=== PATIENT | female | born 1965 | race Caucasian/White ===

== ENCOUNTER 2016-11-21 16:37 | Inpatient (IN) | payer BC ==
[~2016-11-21] VITALS: Ht 172.7 cm; Wt 80.2 kg
--- NOTE | ~2016-11-21 | LETTER ---
ADMIT: 11/21/2016 RM/LOC: 419 [facility] MR#: [id number] [address] [facility] [facility] [place], [place] [address] SHERIE SINGH [address] [place] [id number] Letter SEX: F AGE: 51 : 1965 November 23, 2016 Milton Burden MD [address] [facility], [facility] [address] [place] [address] Re: SHERIE SINGH Dear Milton: Sherie Meyers presented over the weekend with new onset chest discomfort. As you recall, she had an equivocal troponin, but some subtle EKG changes. She underwent heart catheterization on November 23, 2016. She had no prior coronary history. She is a smoker with a baseline LDL of 160. At coronary angiography, she was found to have single-vessel disease with 95% stenosis of the proximal LAD. This stenosis was treated successfully with a 3.0 x 16 mm stent. Post stent deployment, I was concerned about some haziness and possible thrombus versus residual disease just proximal to the stent. We performed intravascular ultrasound and this revealed residual plaque. Therefore, I placed a 3.5 x 8 mm Synergy stent in an overlapping fashion to cover the entire proximal segment of the artery. The stents do extend into the midportion. At the end of the case, there was no significant residual and she continued to have DENICE-3 flow with no immediate complications. She will be in the hospital overnight and I am going to start Integrilin because of the high thrombus burden. She has been placed on Brilinta. If all goes well, I anticipate she will be discharged home tomorrow. If there are any questions or concerns, please do not hesitate to contact me. Sincerely, MD FERNANDO Rene/mahsa /[phone]
--- NOTE | ~2016-11-21 | ECH ---
Transthoracic Echocardiography Report (TTE) Demographics Patient Name SHERIE SINGH Date of Study 11/22/2016 Patient Number [id number] Visit Number [id number] Date of 1965 Room Number 419 Accession Number [id number] Gender Female Age 51 year(s) Referring Miguel Ángel García Hardware Test Engineer Kathryn Cannon [facility] Physician MD Jenise Restrepo MD Physician Interpreting Miguel Ángel García Lotus Notes Administrator Physician Supervising Ordering Physician Miguel Ángel García MD/KRISTOFER VARGAS Nurse Stress Certified Orthoptist Conclusions Summary Technically adequate exam. The estimated left ventricular ejection fraction is 65%. Mild left ventricular hypertrophy. No significant valvular abnormalities. Procedure Type of Study TTE procedure:Echo Complete SF. Procedure Date Date: 11/22/2016 Start: 10:50 AM Technical Quality: Adequate visualization Indications:Chest pain, Abnormal troponin and Abnormal ECG. Appropriate Use Criteria: 9 Height: 68 inches Weight: 173 pounds BSA: 1.92 m Rhythm: Within normal limits HR: 70 bpm BP: 100/54 mmHg M-Mode/2D Measurements LV Diastolic Dimension: 4.29 cm LV Systolic Dimension: 2.42 cm LV Septum Diastolic: 1.15 cm LV PW Diastolic: 0.93 cm AO Root Dimension: 2.55 cm Cardiac Output: 2.76 l/min LA Dimension: 3.67 cm Cardiac Index: 1.44 l/min*m RV Diastolic Dimension: 2.87 cm LA volume index: 28 ml/m LVOT: 1.61 cm LVOT VTI: 19.37 cm RV Base: 3.48 cm LV Stroke volume: 39.41 ml RV Mid: 2.3 cm LV Stroke volume index: 20.53 ml/m RV Length: 7.2 cm Doppler Measurements AV Peak Velocity: 1.3 m/s MV Peak E-Wave: 0.82 m/s AV Peak Gradient: 6.76 mmHg MV Peak A-Wave: 0.61 m/s AV Mean Gradient: 3.94 mmHg MV E/A Ratio: 1.35 LVOT Peak Velocity: 0.92 m/s MV P1/2t: 48.5 msec AV Area (Continuity):1.51 cm MV Deceleration Time: 161.6 msec TR Velocity:2.23 m/s MV Area (PHT): 4.54 cm TR Gradient:19.94 mmHg PV Peak Velocity: 0.8 m/s Estimated RAP:5 mmHg PV Peak Gradient: 2.54 mmHg Estimated RVSP: 25 mmHg Estimated PASP: 24.94 mmHg RA Area: 12.81 cm Findings Left Ventricle The left ventricle is normal in size . Mild left ventricular hypertrophy. Diastolic assessment reveals normal relaxation. Right Ventricle Normal right ventricle structure and function. Left Atrium Normal left atrial size. Right Atrium Normal right atrial size. Mitral Valve Normal mitral valve structure and function. Mild mitral regurgitation by color Doppler. Aortic Valve The aortic valve is mildly sclerotic. There is no aortic regurgitation by color Doppler. Tricuspid Valve Normal tricuspid valve structure and function. Mild tricuspid regurgitation by color Doppler. Pulmonic Valve The pulmonic valve is not well visualized. Pericardial Effusion No evidence of pericardial effusion. Miscellaneous Visualized portions of the aortic root and ascending aorta appear normal in size. Pleural Effusion No evidence of pleural effusion. Contractility Score LV regional wall motion:(0-Non visualized 1-Normal 2-Hypokinesis 3-Akinesis 4-Dyskinesis 5-Aneurysm) Signature
--- NOTE | ~2016-11-21 | CATH ---
Cardiac Diagnostic + PCI Report Demographics Patient Name LORIN REHMAN Gender Female Date of 1965 Age 51 year(s) Patient Number [id number] Date of Study 11/23/2016 Visit Number [id number] Room Number 419 Corporate ID Ht 172.72 cm Wt 78.47 kg Accession Number [id number] BSA 1.92 m Referring Keyonnattjames Restrepo Primary Physician Physician Performing Fruehling Sukumar R Secondary Physician Physician Diagnostic Fruehling Sukumar R Assisting Physician Physician Interventional Fruehling Sukumar R Physician Manager Restaurant Physician MD Findings and Conclusions Diagnostic Findings and Conclusion Single vessel CAD of prox LAD, 95% with DENICE III flow. EDP 4 mmHg Diagnostic Recommendations Proceed with stenting of proximal LAD Interventional Findings and Conclusion Successful PCI of prox LAD with 3.0x16 mm and 3.5x8 mm Synergy stents placed proximally in an overlapping fashion. The second stent was placed after IVUS revealed significant plaque with possible thrombus proximally. Interventional Recommendations Integrilin for 12 hrs due to thrombus burden Long-term Dual Anti-Platelet Therapy Smoking cessation counseling Risk factor modification Procedure Description The patient was brought to the diagnostic cardiac catheterization laboratory in the fasting, non-sedated state. Informed consent was obtained in the written and verbal form after the risks and benefits were explained. The patient had no further questions and agreed to proceed. The planned puncture-incision site(s) were shaved and prepped with ChloraPrep and draped in the usual sterile manner. Conscious sedation, supplemental oxygen, and pain control medications were delivered by a registered nurse under physician guidance. Surface ECG rhythm, blood pressure measurement, and pulse oximetry were monitored throughout the procedure. Arterial access. The right radial access site was infiltrated with lidocaine. The right radial vessel was entered with the Seldinger technique. A 6F radial sheath was advanced into the vessel and used for catheter placement. Selective right coronary angiography. A 6F FR4 catheter was advanced into the right coronary vessel ostium under fluoroscopic guidance. Contrast was injected by hand. Images were obtained in multiple projections. Left heart catheterization. A 6F JL3.5 catheter was advanced across the aortic valve to the left ventricle under fluoroscopic guidance. Resting hemodynamics were obtained. Selective left coronary angiography. A 6F JL3.5 catheter was advanced into the left coronary vessel ostium under Fluoroscopic guidance. Contrast was injected by hand. Images were obtained in multiple projections. Angioplasty and Stent Placement: A EBU3.5 guiding catheter was used to intubate the vessel. A 0.14 BMW wire was then used to cross the lesion. A 2.5x12 Trek balloon catheter was placed across the lesion and inflated. The balloon catheter was then removed. A 3.0 x 16 Synergy Drug Eluting Stent was placed and inflated. The stent balloon was removed and a 3.5x8 NC Emerge balloon was used to post-dilate. Next, the IVUS catheter was advanced into position and imaging was performed. Vessel dimensions were measured. A 3.5 x 8 Synergy Drug Eluting Stent was placed and inflated. Post placement angiograms were performed. Arterial artery hemostasis was achieved using 13cc air in a TR band. The patient was transferred back to the regular nursing floor via cart accompanied by a nurse. The patient left the laboratory in stable condition. Diagnostic Cath Status: Urgent Interventional Cath Status: Urgent Procedure Procedure Type Diagnostic procedure:Diagnostic Heart Cath SF PCI procedure:Drug Eluting Coronary Stent:, LAD, Additional Imaging:, IVUS:, Initial Vessel Indications: Chest discomfort, Elevated troponin, Tobacco use-current, Hyperlipidemia and NSTEMI. The procedure was explained in detail to the patient. Risks, complications and alternative treatments were reviewed. Written consent was obtained. Medications Reviewed with Patient prior to Procedure. Complications: No Complication. Angiographic Findings Dominance: Right Cardiac Arteries and Lesion Findings LMCA: Normal (0% Stenosis). LAD: Abnormal. Lesion on Prox LAD: Distal subsection.95% stenosis 16 mm length reduced to 0%. Pre procedure DENICE III flow was noted. Post Procedure DENICE III flow was present. The guidewire cross was successful.Culprit lesion. IVUS was performed. Treatment results:Interventional treatment was successful. Devices used - BMW GUIDEWIRE 180CM. Number of passes: 1. - CATH BLN RX TREK 2.5X12MM. Diameter: 2.5 mm. Length: 12 mm. 2 inflation(s) to a max pressure of: 10 edna. - CATH STENT SYNERGY 3.0 X 16. 1 inflation(s) to a max pressure of: 16 edna. - CATH BAL RX NC EMERGE 3.5X8. 1 inflation(s) to a max pressure of: 16 edna. Lesion on Prox LAD: 95% stenosis 8 mm length reduced to 0%. Pre procedure DENICE III flow was noted. Post Procedure DENICE III flow was present. The guidewire cross was successful. IVUS was performed. Treatment results:Interventional treatment was successful. Devices used - CATH STENT SYNERGY 3.0 X 8. 2 inflation(s) to a max pressure of: 14 edna. LCx: Normal (0% Stenosis). RCA: Abnormal. Lesion on Mid RCA: 40% stenosis . Ramus: Normal (0% Stenosis). Coronary Tree Procedure Data Procedure Date Date: 11/23/2016Start: 09:32 AMEnd: 10:56 AM Entry Locations - Percutaneous access was performed through the Right Radial artery (Primary location). A 6 Fr sheath was inserted. Hemostasis was successfully obtained using a TR band. Closure Comments: 13 cc air in band. Procedure Medications Order and Administration + + + + + !Time !Medication !Dosage !Route ! + + + + + !11/23/2016 09:29 !Fentanyl !25 mcg !I.V. ! !AM ! ! ! ! + + + + + !11/23/2016 09:29 !Versed !1 mg !I.V. ! !AM ! ! ! ! + + + + + !11/23/2016 09:33 !Fentanyl !25 mcg !I.V. ! !AM ! ! ! ! + + + + + !11/23/2016 09:33 !Versed !1 mg !I.V. ! !AM ! ! ! ! + + + + + !11/23/2016 09:54 !Brilinta (Ticagrelor) !180 mg !P.O. ! !AM !(ACC_20) ! ! ! + + + + + !11/23/2016 10:04 !Fentanyl !25 mcg !I.V. ! !AM ! ! ! ! + + + + + !11/23/2016 10:04 !Versed !1 mg !I.V. ! !AM ! ! ! ! + + + + + !11/23/2016 10:07 !Fentanyl !25 mcg !I.V. ! !AM ! ! ! ! + + + + + !11/23/2016 10:07 !Versed !1 mg !I.V. ! !AM ! ! ! ! + + + + + !11/23/2016 10:08 !Sodium Chloride !20 ml !I.V. ! !AM ! ! ! ! + + + + + !11/23/2016 10:09 !Nitroglycerin !200 mcg !I.C. ! !AM ! ! ! ! + + + + + !11/23/2016 10:17 !Heparin (ACC_3) !2000 units !I.V. ! !AM ! ! ! ! + + + + + !11/23/2016 10:17 !Sodium Chloride !10 ml !I.V. ! !AM ! ! ! ! + + + + + !11/23/2016 10:34 !Fentanyl !50 mcg !I.V. ! !AM ! ! ! ! + + + + + !11/23/2016 10:34 !Versed !2 mg !I.V. ! !AM ! ! ! ! + + + + + !11/23/2016 10:42 !Integrilin (ACC_7) !6.8 ml !I.V. bolus ! !AM ! ! ! ! + + + + + !11/23/2016 10:42 !Integrilin (ACC_7) !2 mcg/kg/min!I.V. drip ! !AM ! ! ! ! + + + + + !11/23/2016 10:54 !Integrilin (ACC_7) !6.8 ml !I.V. bolus ! !AM ! ! ! ! + + + + + Devices Used - ACATH 6F FR4 CATHETER 100CMwas used for:Right coronary angiography. - ACATH 6FR FL3.5 CATHETER 100CMwas used for:LV Pressures. - ACATH 6FR FL3.5 CATHETER 100CMwas used for:Left coronary angiography. - AGUIDE CATHETER 6FR EBU 3.5 100CMwas used for:LAD Intervention. Contrast Material - Isovue 02857 ml - Isovue 95197 ml - Isovue 44957 ml Fluoroscopy Time: Diagnostic: 18:06 minutes. Total: 18:06 minutes. Fluoroscopy Dose: Diagnostic: 1732 mGy. Total: 1732 mGy. Estimated Blood Loss: 10 ml. Medical History Allergies - No known allergies. Risk Factors The patient risk factors include:hypercholesterolemia, last creatinine: 0.7 mg/dl, creatinine clearance: 116.46 ml/min, dyslipidemia and Current/Recent(w/in 1 year) tobacco use. Admission Data Admission Date: 11/21/2016 Admission Time: 08:20 PM Insurance Payors: Private health insurance. Clinical Evaluation Leading to Procedure Diagnosed on 11/22/2016 08:45 AM. - The patient's CAD presentation was assessed as: Non-STEMI. - The patient's anginal syndrome during the past two weeks was assessed as: Class III according to the [place] Cardiovascular Society Classification System (CCS). Hemodynamics Condition: Rest O2 Consumption: Estimated: 187.01Heart Rate: 70 bpm Pressures (mmHg) +-----+ + !Site !Pressure ! +-----+ + !AO !111/ (90) ! +-----+ + !LV !111/1 ,4 ! +-----+ + !AO !132/78 (101) ! +-----+ + !LV !104/2 ,5 ! +-----+ + Valve Gradients and Areas + +---------+---------+---------+ +---------+ + !Valve !Peak !Mean !Area !Index !Flow !Source ! + +---------+---------+---------+ +---------+ + !Aortic !0 ! ! ! ! ! ! + +---------+---------+---------+ +---------+ + !Aortic !0 ! ! ! ! ! ! + +---------+---------+---------+ +---------+ + Shunts Oxygen Values O2 Capacity 168.64 O2 Consumption 187.01 Discharge Data Discharge Date: 11/24/2016 Hospital Status: Inpatient Signatures
--- NOTE | 2016-11-22 19:38 | ER ---
ADMIT: 11/21/2016 RM/LOC: 419 [facility] MR#: [id number] [address] [facility] [address] [place], [place] [address] LORIN SINGHALENASHERIE [address] [place] [address] Emergency Room Report SEX: F AGE: 51 : 1965 DATE: 11/21/2016 CHIEF COMPLAINT: Chest pain. HISTORY OF PRESENT ILLNESS: The patient is a 51-year-old, Guatemalan-speaking Felipe complaining of left substernal chest discomfort, nonradiating with activity, associated with shortness of breath. Denies any nausea, diaphoresis. States it began approximately 3 days ago since starting work at [employer]. The patient's risk factors include smoking, otherwise negative family history. PAST MEDICAL HISTORY: ILLNESSES: None. OPERATIONS: . ALLERGIES: NONE. MEDICATIONS: None. SOCIAL HISTORY: , employed, smoker 1/2 pack per day. No illicit drugs or alcohol. FAMILY HISTORY: Negative per chart review. REVIEW OF SYSTEMS: A 12-point review of systems negative for all other systems, illnesses, or operations except as outlined above. PHYSICAL EXAMINATION: VITAL SIGNS: Temp 96.5, pulse 96, respirations 15, BP 154/99, and SaO2 of 100% on room air. GENERAL: Anxious, non-diaphoretic, without jaundice or icterus. HEENT: Normocephalic. No evidence of epistaxis, rhinorrhea, or otorrhea. NECK: Supple without lymphadenopathy or thyromegaly. CHEST: Clear. Breath sounds equal. Nontender to palpation. HEART: Regular rate and rhythm without murmur, gallop, or edema. ABDOMEN: Soft, nontender, nondistended without mass or megaly. Bowel sounds hypoactive. EXTREMITIES: No evidence of Homans sign, synovitis, or dermatitis. NEURO: EOMI. PERRLA. No evidence of drift, dysarthria, or ataxia. GAIT: Normal. MENTAL STATUS: Alert, oriented, and cooperative without delusions, hallucinations, or abnormal thought content. MEDICAL DECISION MAKING: EKG shows sinus rhythm without ST-T or Q-wave change. No prior tracing. Chest x-ray, no acute findings. Lab, normal CBC, CMP, lactic acid, D-dimer, and BNP. Initial CK 107, subsequent EKG 84. Initial troponin 0.064, slightly above threshold. 2-hour delta troponin slightly ADMIT: 11/21/2016 RM/LOC: 419 [facility] MR#: [id number] [address] [address] SHERIE SINGH [address] [place] [address] Emergency Room Report SEX: F AGE: 51 : 1965 increased at 0.087. The patient was initially given Zofran and Toradol with no change in discomfort. With subsequent troponin, was then given aspirin, nitroglycerin with complete relief of pain after third nitroglycerin, 1 inch nitroglycerin paste applied. Dr. Burden and Dr. Suh were consulted. Dr. Suh did give orders to nursing staff. Will initiate anticoagulation on the floor. DIAGNOSIS: Chest pain, rule out acute coronary syndrome. RECOMMENDATION: Admit inpatient telemetry for Dr. Burden. ADMISSION/DISCHARGE CONDITION: Stable. The patient is a full code. Tevin Bundy MD/ modl JOB #: [id number] CC: Milton Burden MD, Attending Physician Milton Burden MD, Family Physician
--- NOTE | 2016-11-24 11:04 | HP ---
ADMIT: 11/21/2016 RM/LOC: 419 [facility] MR#: [id number] 26[address] [facility] [address] [place], [place] [address] SHERIE SINGH [address] [place] [address] History and Physical SEX: F AGE: 51 : 1965 DATE OF SERVICE: CHIEF COMPLAINT: Chest pain. HISTORY OF PRESENT ILLNESS: A 51-year-old, Mauritanian male, Polish-speaking only female who presents to the ER city-call, who has no known medical problems. She states that she has been having intermittent chest pain describing it as a burning pain and pressure, shortness of breath since Wednesday that worsens with exertion like at work and with walking. The patient states she has not had any other health problems, that she is a smoker. She smokes at least a pack a day. She says that this pain does radiate to her left arm at times. She denies any headaches or vision changes or weakness. Denies any recent abdominal pain, diarrhea, constipation, nausea, or vomiting. She has had some sweating at times with these events. No recent illnesses. No cough, congestion, sore throat. When the patient arrived to the ER, they did an initial workup which showed a UA that was normal, a normal white blood cell count of 8.7, slightly low hemoglobin of 13, and platelets are normal at 216. UDS is negative. D-dimer was within normal limits. CMP was normal. CK was 107. Troponin was 0.064, which is abnormal. CRP was slightly elevated at 0.42. BNP was normal. Lactic acid was normal at 0.8, and chest x-ray was also normal. Due to the slightly elevated troponin, they repeated cardiac enzymes 2 hours later and the troponin actually had increased up to 0.087. FAMILY HISTORY: She is unaware of any significant heart history, is not aware of anyone having any heart attacks, hypertension, diabetes, strokes, or heart failure. SOCIAL HISTORY: She is a smoker. PAST SURGICAL HISTORY: She has had a previously. MEDICATIONS: She takes an occasional ibuprofen. ALLERGIES: NONE. REVIEW OF SYSTEMS: As noted above in the HPI. PHYSICAL EXAMINATION: VITAL SIGNS: Blood pressure is 132/71, pulse of 91, temp was 97, 98% SpO2 on room air. GENERAL: No acute distress. Alert and oriented x3. HEENT: Normocephalic and atraumatic. Moist mucous membranes. Extraocular muscles are intact. Pupils are equal, round, and reactive. HEART: Regular rate and rhythm. No murmur. LUNGS: Clear to auscultation bilaterally. ABDOMEN: Soft. Positive bowel sounds. Nontender to palpation. No masses. EXTREMITIES: No signs of edema bilaterally. NEURO: Cranial nerves II through XII are grossly intact. No signs of weakness. ADMIT: 11/21/2016 RM/LOC: 419 [facility] MR#: [id number] [address] [place] [id number] SHERIE SINGH [address] [place] [address] History and Physical SEX: F AGE: 51 : 1965 The patient was given 325 mg of aspirin in the ER. ASSESSMENT AND PLAN: This is a 51-year-old, female, who presents with chest pain and shortness of breath over the last couple of days. 1. Typical chest pain with mild ST depression and mild increase in troponins. 2. Bqp-AA-mymvhxr elevation myocardial infarction. 3. Nicotine use disorder. 4. No primary care. We will admit the patient to Med-Surg tele. We will trend her enzymes. She will be n.p.o. at this time. We will go ahead and start the patient on IV heparin per ACS protocol. We will also start her on atorvastatin 40 mg daily, Lopressor 25 mg b.i.d. We will get a lipid panel tonight. In the morning, we will repeat a CBC, TSH, and her cardiac enzymes. Activity as tolerated. Cardiology has already been consulted. I did discuss with Dr. DelR osario as far as management of this patient. We appreciate his and Cardiology's recommendations. Candi Suh MD Resident / Milton Burden MD / modl JOB #: [id number] CC: Milton Burden, Attending Physician Milton Burden, Family Physician
--- NOTE | 2016-11-24 19:05 | DS ---
ADMIT: 11/21/2016 RM/LOC: 419 [facility] MR#: [id number] [address] [facility] [address] [place] [address] LORIN SINGHALENASHERIE [address] [place] [address] Discharge Summary SEX: F AGE: 51 : 1965 ADMISSION DATE: 11/21/2016 DISCHARGE DATE: 11/24/2016 FINAL DIAGNOSES: 1. Non-ST elevation myocardial infarction with 95% occlusion of the left anterior descending coronary artery. 2. Hyperlipidemia. 3. Tobacco abuse. PROCEDURE: Angiography with stenting of the LAD by Cardiology. HOSPITAL COURSE: The patient presented to the Emergency Room complaining of chest pain and was admitted. Her troponin enzymes jody and she was diagnosed with non-ST elevation myocardial infarction. Cardiology was consulted and she was started on heparin per ACS protocol. Dr. Sukumar Del Rosario performed angiography on 11/23/2016 noting single-vessel coronary artery disease of the proximal left anterior descending with 95% occlusion. He performed PCI of the proximal LAD with overlapping stents. The patient did well with the procedure. On the morning of 11/24/2016, she had no problems, no concerns, no pain. She will be dismissed home. I will defer to the cardiologists regarding when to see her in their office. We will have her follow up with Dr. Milton Burden in the [facility] to establish primary family care. She does not have a local physician and he admitted her under the "city call" care. She has been counseled regarding diet for her lipids and also regarding smoking cessation. She has willingness to quit smoking. We ordered nicotine patches. On dismissal, medications are: 1. Aspirin 81 mg daily. 2. Brilinta 90 mg b.i.d. 3. Crestor 20 mg at bedtime. 4. Lopressor 25 mg b.i.d. 5. Habitrol patch 14 mg. 6. I also wrote for hydrocodone 5/Tylenol 325, one tablet every 6 hours p.r.n. headache and I wrote for #10. 7. She can also take [id number] Tylenol. 8. I wrote for a prescription of nitroglycerin sublingual #10 to take in case of pain and she must come back to the ER if she has recurrent chest pain. Erna Aguilar MD/ yadira JOB #: [id number] CC: Milton Burden MD, Attending Physician Milton Burden MD, Family Physician
[2016-11-25] MEDS ORDERED: METOPROLOL TART25 MG PO (06:37)
[2016-11-25] MEDS ORDERED: ASPIR 8181 MG PO (06:37)
[2016-11-25] MEDS ORDERED: CRESTOR20 MG PO (06:37)
[2016-11-25] MEDS ORDERED: BRILINTA90 MG PO (06:37)
[2016-11-25] MEDS ORDERED: NICOTINE PATCH1 EAC1 TD (06:38)
[2016-11-25] MEDS ORDERED: ACETAMINOPHEN325 MG PO (06:39)
[2016-11-25] MEDS ORDERED: HYDROCODON-ACE1 EAC4 PO (06:39)
[2016-11-25] MEDS ORDERED: NITROSTAT0.4 MG SL (06:40)
--- NOTE | 2016-12-04 17:29 | CO ---
ADMIT: 11/21/2016 RM/LOC: 419 [facility] MR#: [id number] [facility] [address] [place] [id number] SHERIE SINGH [address] [place] [address] Consultation SEX: F AGE: 51 : 1965 DATE OF CONSULTATION: 11/22/2016 ATTENDING PHYSICIAN: Milton Burden CONSULTING PHYSICIAN: Sukumar Del Rosario MD REASON FOR CONSULT: Chest pain and abnormal cardiac enzymes. HISTORY OF PRESENT ILLNESS: Sherie is a 51-year-old smoker with no prior cardiac history. She does not take any routine medications and denies any chronic medical problems. She works out a [employer]. Ever since Wednesday of this week, she has been noticing chest discomfort, described as a burning sensation substernally. At times, it can become severe. It is always with exertion. She has not had rest pain. She says she has had radiation into her left arm and her left jaw. Just walking or doing her activities at work bring on the discomfort. She came in overnight. Her troponins were mildly elevated. Her CKs have been negative. Troponin was 0.085 and 0.094 but her EKG suggests the possibility of subtle biphasic T- waves in the anterior leads. ALLERGIES: DENIES ANY MEDICAL ALLERGIES. MEDICATIONS: She does not take any routine medications. PAST MEDICAL HISTORY: She denies any chronic medical problems. She had a C- section with her only daughter. FAMILY HISTORY: Negative for premature coronary artery disease. She says her mother and father are relatively healthy. No diabetes, cancer, stroke. SOCIAL HISTORY: She smoked for 30 years. She drinks coffee every day. No alcohol. No illicit drug use. She works out at [employer]. She is Felipe. She has been for 23 years. They have one daughter. REVIEW OF SYSTEMS: GENERAL: Denies fatigue, fever, chills, sweats, rash, or weight loss. EYES: Denies double vision, blurred vision, cataracts, or glaucoma. ENT: Denies hearing loss or problems with nose, mouth or throat. RESPIRATORY: Positive for chronic cough. Denies sputum production, asthma, emphysema or bronchitis. Denies snoring loudly, wakefulness at night, or fatigue upon awakening. GASTROINTESTINAL: Denies heartburn or difficulty swallowing. No change in bowel habits. Denies dark or bloody stools. No history of ulcers, hiatal hernia, or gallbladder or liver disease. GENITOURINARY: Denies dysuria, hematuria, nocturia, urinary tract infection, or kidney stones. Denies history of renal insufficiency or failure. MUSCULOSKELETAL: Denies history of arthritis or gout. Denies muscle or joint pains. ADMIT: 11/21/2016 RM/LOC: 419 [facility] MR#: [id number] [id number] [id number] SHERIE SINGH [address] [place] [address] Consultation SEX: F AGE: 51 : 1965 ENDOCRINE: Denies history of thyroid dysfunction or diabetes. HEMATOLOGIC: Denies history of anemia, easy bruising, or cancer. NEUROLOGIC: Denies chronic headaches, dizziness, syncope, stroke, seizures or numbness or tingling. PSYCHIATRIC: Denies history of mental illness or feelings of depression. PHYSICAL EXAMINATION: VITAL SIGNS: Her blood pressure is 100/54, pulse is 72, respirations 16, O2 sats are 98% on room air. SKIN: [place], warm and dry. EYES: Sclerae clear. No xanthelasmas. ENT: Oral mucosa is pink and moist. No jugular venous distention or carotid bruits. CHEST: Respirations are even and unlabored. Lungs are clear to auscultation. HEART: Regular rate and rhythm. Normal S1, S2. No murmurs, rubs or gallops. ABDOMEN: Soft and nontender. MUSCULOSKELETAL: Gait is normal. EXTREMITIES: Peripheral pulses palpable. No clubbing, cyanosis or edema. PSYCHIATRIC: Alert and oriented. Mood and affect are appropriate. LABORATORY DATA: CKs have been negative. Her troponin was 0.087, then 0.094 and this morning 0.085. AST and ALT are normal. Total cholesterol 240, triglycerides 195, HDL 40 and her LDL was 161. Sodium 143, potassium 4.1, creatinine 0.7. ProBNP was 100. TSH 1.8. White count 8.8, hemoglobin 12.5, and platelet count 197,000. Drug screen was negative. Chest x-ray was unremarkable, normal heart size, and no pulmonary vascular congestion. A 12- lead EKG showed sinus rhythm with no Q-waves but subtle biphasic T-waves in the anterior precordium. IMPRESSION: 1. [id number]-AP-[id number]-acute coronary syndrome. 2. Tobacco abuse. 3. Hyperlipidemia. ADMIT: 11/21/2016 RM/LOC: 419 [facility] MR#: [id number] [address] [id number] SHERIE SINGH [address] [place] [address] Consultation SEX: F AGE: 51 : 1965 RECOMMENDATIONS: She has some high risk features with progressive, rather classic exertional anginal symptoms along with mildly-elevated troponins and even more concerning to me or her subtle EKG changes with possible biphasic T- waves in the anterior precordial leads. We will continue her heparin and we started aspirin, beta ottoniel, and statin therapy. I talked to her about the absolute importance of smoking cessation. I am going to do an echo today. We will plan on left heart catheterization and coronary angiography tomorrow morning for definitive evaluation and possible intervention. I did discuss the procedure with her and her . We discussed the potential risk and benefits. The potential risks, including, but not limited to, AK, vascular trauma or bleeding, CVA, renal failure, and even a small possibility of . She states understanding and agrees to proceed. Sukumar Del Rosario MD/ mahsa JOB #: [id number] CC: Milton Burden, Attending Physician Milton Burden, Family Physician
== END 2016-11-24 12:14 | disposition home or self-care (01) | DRG 247 ==
LOC: ER 16:37 → EDBD 16:37 → 4PCU 20:20
PROVIDERS: ADMIT Family Medicine
PROC: 027035Z Dilation of Coronary Artery, One Artery with Two Drug-eluting Intraluminal Devices, Percutaneous Approach (ICD-10-PCS; principal; 2016-11-23)
PROC: 4A023N8 Measurement of Cardiac Sampling and Pressure, Bilateral, Percutaneous Approach (ICD-10-PCS; principal; 2016-11-23)
PROC: B2111ZZ Fluoroscopy of Multiple Coronary Arteries using Low Osmolar Contrast (ICD-10-PCS; principal; 2016-11-23)
DX: I21.4 Non-ST elevation (NSTEMI) myocardial infarction (principal); E78.5 Hyperlipidemia, unspecified; F17.210 Nicotine dependence, cigarettes, uncomplicated; I25.10 Atherosclerotic heart disease of native coronary artery without angina pectoris